=== PATIENT | female | born 1995 | race Caucasian/White ===

== ENCOUNTER 2017-04-02 10:11 | Emergency (ER) | payer OTHER | END 2017-04-02 12:20 | disposition home or self-care (01) | LOC: M ED 10:11 | DX: G56.03 Carpal tunnel syndrome, bilateral upper limbs (principal); F17.210 Nicotine dependence, cigarettes, uncomplicated | CPT/HCPCS: 99282 ==

== ENCOUNTER 2018-01-25 16:05 | Emergency (ER) | payer MEDICAID, SELFPAY, OTHER ==
[2018-01-25] MEDS: PERCOCET 5MG/325MG TAB PO ×2 (17:04)
== END 2018-01-25 18:11 | disposition home or self-care (01) ==
LOC: M ED 16:05
DX: M79.671 Pain in right foot (principal)
CPT/HCPCS: 73630

== ENCOUNTER → 2018-05-31 | Outpatient (REF) | payer OTHER ==
[~2018-05-31] MED LIST: COLA100C5 PO; IBUP-1114 PO; IBUP80TA PO; INDO50CA PO; MAPA500T2 PO; MOM30SS PO; PERC5TAB12 PO; PRENTAB9 PO
[2018-05-31 17:43] LABS: INFLUENZA A AMPLIFICATION POSITIVE (NEGATIVE); INFLUENZA B AMPLIFICATION NEGATIVE (NEGATIVE)
== END ==
LOC: M LAB REF 11:46
PROVIDERS: ATTEND Nurse Practitioner Family
DX: J11.1 Influenza due to unidentified influenza virus with other respiratory manifestations (principal)

== ENCOUNTER 2018-07-30 19:07 | Emergency (ER) | payer MEDICAID, OTHER ==
[~2018-07-30] VITALS: Ht 152.4 cm; Wt 118.9 kg
[2018-07-30 19:07] VITALS: BP 128/69
[~2018-07-30 19:07] MED LIST changes: -INDO50CA PO; +INDO50CA11 PO
--- NOTE | 2018-07-30 20:03 | REP ---
Left ankle four views History: Fall There is no acute fracture or dislocation. The joint space is normal in appearance. Soft tissue swelling is present. Impression: There is no acute fracture or dislocation. Electronically Signed by Jonah Sierra MD 07/30/2018 07:55 P
== END 2018-07-30 19:50 | disposition home or self-care (01) ==
LOC: M ED 19:07
DX: S93.402A Sprain of unspecified ligament of left ankle, initial encounter (principal); W19.XXXA Unspecified fall, initial encounter; Y92.099 Unspecified place in other non-institutional residence as the place of occurrence of the external cause; Y93.9 Activity, unspecified; Y99.9 Unspecified external cause status; Z72.0 Tobacco use

== ENCOUNTER 2018-10-23 19:24 | Emergency (ER) | payer OTHER ==
[~2018-10-23] VITALS: Ht 154.9 cm; Wt 119.5 kg
[2018-10-23] MEDS ORDERED: IBUP80TA PO (22:32)
[2018-10-23] MEDS ORDERED: KETOROLAC 60 MG/2 ML VIAL (J1885) IM ONE (22:45)
[2018-10-23] MEDS ORDERED: ACETAMINOPHEN 500 MG TAB PO ONE (22:45)
[2018-10-23 22:51] VITALS: BP 130/80
--- NOTE | 2018-10-24 08:01 | REP ---
The left ankle four views : There is soft tissue edema laterally There is no fracture or dislocation. Mineralization and joint spaces are normal. There are no calcifications or foreign bodies. Impression: Negative soft tissue edema laterally, no fracture. Electronically Signed by Sadiq Sullivan MD 10/24/2018 07:52 A
== END 2018-10-23 22:56 | disposition home or self-care (01) ==
LOC: M ED 19:24
DX: S93.402A Sprain of unspecified ligament of left ankle, initial encounter (principal); X50.9XXA Other and unspecified overexertion or strenuous movements or postures, initial encounter; Y92.018 Other place in single-family (private) house as the place of occurrence of the external cause; F33.9 Major depressive disorder, recurrent, unspecified; F41.9 Anxiety disorder, unspecified; F17.210 Nicotine dependence, cigarettes, uncomplicated
CPT/HCPCS: 73610; 96372; 99284; J1885

== ENCOUNTER → 2021-09-29 | Outpatient (CLI) | payer OTHER ==
[~2021-09-29] MED LIST changes: -INDO50CA11 PO; +INDO50CA91 PO
[2021-09-29 13:57] LABS: BASO % 0.3 % (0.0-1.0); EOS # 0.1 10^3/uL (0.0-0.5); EOS % 0.8 % (0.0-3.0); HEMATOCRIT 39.7 % (36.0-47.0); HEMOGLOBIN 13.6 g/dl (12.0-15.5); LYMPH # 1.7 10^3/uL (1.5-5.0); MEAN CORPUSCULAR HEMOGLOBIN 32.5 pg (27.0-33.0); MEAN CORPUSCULAR HGB CONC 34.3 g/dl (32.0-36.5); MONO # 0.4 10^3/uL (0.0-0.8); MONO % 5.2 % (2.0-8.0); NEUTROPHILS # 5.5 10^3/uL (1.5-8.5); NEUTROPHILS % 71.3 % (36.0-66.0); PLATELET COUNT, AUTOMATED 297 10^3/uL (150-450); RED BLOOD COUNT 4.18 10^6/uL (4.00-5.40); WHITE BLOOD COUNT 7.7 10^3/uL (4.0-10.0)
[2021-09-29 15:21] LABS: GC DNA AMPLIFICATION NEGATIVE (NEGATIVE)
[2021-09-29 15:27] LABS: HEPATITIS C VIRUS ABY INDEX 0.2 INDEX (<0.8); HIV 1&2 SCREEN CENTAUR NEGATIVE (NEGATIVE)
== END ==
LOC: M PLALAB 08:48
PROVIDERS: ATTEND Advanced Practice Midwife
DX: Z34.81 Encounter for supervision of other normal pregnancy, first trimester (principal); Z36.89 Encounter for other specified antenatal screening

== ENCOUNTER → 2021-10-25 | Outpatient (CLI) | payer OTHER | LOC: M WHC 14:12 | PROVIDERS: ATTEND Advanced Practice Midwife | DX: Z34.82 Encounter for supervision of other normal pregnancy, second trimester (principal); Z36.9 Encounter for antenatal screening, unspecified ==

== ENCOUNTER → 2021-11-24 | Outpatient (CLI) | payer OTHER | LOC: M WHC 13:29 | PROVIDERS: ATTEND Advanced Practice Midwife | DX: Z34.82 Encounter for supervision of other normal pregnancy, second trimester (principal); Z3A.19 19 weeks gestation of pregnancy ==

== ENCOUNTER → 2022-01-23 | Outpatient (CLI) | payer OTHER | LOC: M WHC 12:58 | PROVIDERS: ATTEND Advanced Practice Midwife | DX: Z34.02 Encounter for supervision of normal first pregnancy, second trimester (principal); Z3A.28 28 weeks gestation of pregnancy ==

== ENCOUNTER → 2022-01-29 | Outpatient (CLI) | payer OTHER ==
[2022-01-29 13:59] LABS: HEMATOCRIT 33.7 % (36.0-47.0); HEMOGLOBIN 11.3 g/dl (12.0-15.5); MEAN CORPUSCULAR HEMOGLOBIN 32.6 pg (27.0-33.0); MEAN CORPUSCULAR HGB CONC 33.5 g/dl (32.0-36.5); MEAN CORPUSCULAR VOLUME 97.1 fl (80.0-96.0); PLATELET COUNT, AUTOMATED 240 10^3/uL (150-450); RED BLOOD COUNT 3.47 10^6/uL (4.00-5.40); WHITE BLOOD COUNT 7.9 10^3/uL (4.0-10.0)
[2022-01-29 15:50] LABS: GC DNA AMPLIFICATION NEGATIVE (NEGATIVE)
== END ==
LOC: M PLALAB 09:54
PROVIDERS: ATTEND Obstetrics & Gynecology
DX: Z34.82 Encounter for supervision of other normal pregnancy, second trimester (principal)

== ENCOUNTER 2022-03-08 09:02 | Outpatient (CLI) | payer OTHER ==
[~2022-03-08] VITALS: Ht 154.9 cm; Wt 114.8 kg
[2022-03-08] MEDS ORDERED: HOME MED LIST COMPLETE! XX SCH (09:15)
[2022-03-08] MEDS ORDERED: ACET325C5 PO (09:15)
[2022-03-08 09:24] VITALS: BP 120/58
[2022-03-08 09:36] VITALS: BP 127/59
[2022-03-08 10:48] LABS: RSV AMPLIFICATION NEGATIVE (NEGATIVE)
[2022-03-08 11:46] LABS: APPEARANCE, URINE MANUAL HAZY (CLEAR); COLOR, URINE MANUAL AMBER (YELLOW)
[2022-03-08 11:47] LABS: BILIRUBIN, URINE MANUAL 2+ (NEGATIVE); GLUCOSE, URINE (UA) MANUAL NEGATIVE (NEGATIVE); KETONE, URINE MANUAL 3+ mg/dL (NEGATIVE); PROTEIN, URINE MANUAL 1+ mg/dL (NEGATIVE); UROBILINOGEN, URINE MANUAL 4 MG mg/dl (NORMAL)
[2022-03-08 11:48] LABS: BLOOD URINE MANUAL TRACE (NEGATIVE); LEUKOCYTE ESTERASE, URINE MAN TRACE (NEGATIVE); NITRITE, URINE MANUAL NEGATIVE (NEGATIVE)
[2022-03-08 12:10] VITALS: BP 98/48
[2022-03-08 12:14] VITALS: BP 118/53
[2022-03-08 12:16] LABS: BACTERIA, URINE SMALL AMOUNT; HYALINE CAST, URINE NONE SEEN /lpf (0-1); MUCUS, URINE MOD AMOUNT (NEGATIVE); RBC, URINE 0-1 /hpf (0-3); SQUAMOUS EPITHELIAL CELL URINE MOD AMOUNT /hpf (SMALL AMT)
[2022-03-08] MEDS ORDERED: OSELTAMIVIR PHOSPHATE 75 MG CAP (TAMIFLU) PO SCH (13:00)
[2022-03-08] MEDS ORDERED: OSEL75CA2 PO (14:25)
== END 2022-03-08 14:30 | disposition home or self-care (01) ==
LOC: M LDO 09:02
PROVIDERS: ATTEND Obstetrics & Gynecology
DX: O99.513 Diseases of the respiratory system complicating pregnancy, third trimester (principal); J10.01 Influenza due to other identified influenza virus with the same other identified influenza virus pneumonia; Z3A.34 34 weeks gestation of pregnancy

== ENCOUNTER 2022-03-10 14:07 | Outpatient (CLI) | payer OTHER ==
[~2022-03-10] VITALS: Ht 154.9 cm; Wt 114.7 kg
[~2022-03-10 14:07] MED LIST changes: +ACET325C5 PO; +OSEL75CA2 PO
[2022-03-10 14:28] VITALS: BP 104/58
[2022-03-10] MEDS ORDERED: HOME MED LIST COMPLETE! XX SCH (14:30)
== END 2022-03-10 15:20 | disposition home or self-care (01) ==
LOC: M LDO 14:07
PROVIDERS: ATTEND Obstetrics & Gynecology
DX: O26.853 Spotting complicating pregnancy, third trimester (principal); Z3A.34 34 weeks gestation of pregnancy

== ENCOUNTER → 2022-03-20 | Outpatient (REF) | payer OTHER | LOC: M SFHCWAGY 13:27 | PROVIDERS: ATTEND Advanced Practice Midwife | DX: Z34.80 Encounter for supervision of other normal pregnancy, unspecified trimester (principal) ==

== ENCOUNTER → 2022-03-21 | Outpatient (CLI) | payer OTHER | LOC: M WHC 10:30 | PROVIDERS: ATTEND Advanced Practice Midwife | DX: O26.843 Uterine size-date discrepancy, third trimester (principal); Z3A.36 36 weeks gestation of pregnancy ==

== ENCOUNTER 2022-03-27 08:27 | Outpatient (CLI) | payer OTHER ==
[~2022-03-27] VITALS: Ht 154.9 cm; Wt 116.7 kg
[2022-03-27 08:42] VITALS: BP 111/56
[2022-03-27] MEDS ORDERED: HOME MED LIST COMPLETE! XX SCH (08:50)
[2022-03-27 09:54] VITALS: BP 132/70
[2022-03-27 11:33] VITALS: BP 122/70
[2022-03-27 13:30] VITALS: BP 123/58
[2022-03-27] MEDS ORDERED: METR-265 PO (15:18)
== END 2022-03-27 13:45 | disposition home or self-care (01) ==
LOC: M LDO 08:27
PROVIDERS: ATTEND Obstetrics & Gynecology
DX: O47.03 False labor before 37 completed weeks of gestation, third trimester (principal); O26.893 Other specified pregnancy related conditions, third trimester; R10.2 Pelvic and perineal pain; Z3A.36 36 weeks gestation of pregnancy

== ENCOUNTER 2022-04-11 07:58 | Inpatient (IN) | payer OTHER ==
[2022-04-11] VITALS (24 sets, daily range): BP systolic 100–140; BP diastolic 44–91
[~2022-04-11] VITALS: Ht 154.9 cm; Wt 118.4 kg
[~2022-04-11 07:58] MED LIST changes: +METR-265 PO
[2022-04-11] MEDS ORDERED: ACET-683 PO (08:23)
[2022-04-11] MEDS ORDERED: HOME MED LIST COMPLETE! XX SCH (08:25)
[2022-04-11] MEDS ORDERED: miSOPROStol 50MCG 1/2 TABLET PO ONE (09:05)
[2022-04-11] MEDS ORDERED: CARBOPROST TROMETHAMINE 250 MCG/ML AMP IM PRN (09:05)
[2022-04-11] MEDS ORDERED: OXYTOCIN INJ 10UNITS/ML 1ML VIAL IM PRN (09:05)
[2022-04-11] MEDS ORDERED: LIDOCAINE 1% MDV 20ML VIAL INFIL PRN (09:05)
[2022-04-11] MEDS ORDERED: METHYLERGONOVINE MALEATE 0.2 MG/ML VIAL (J2210) IM PRN (09:05)
[2022-04-11] MEDS ORDERED: TRANEXAMIC ACID INJection 1,000 MG in NS 100 ML IV PRN (09:05)
[2022-04-11] MEDS ORDERED: OXYTOCIN DRIP 30 UNITS in IV 1 EA IV PRN ×4 (09:05)
[2022-04-11 09:56] LABS: HEMATOCRIT 35.4 % (36.0-47.0); MEAN CORPUSCULAR HEMOGLOBIN 31.7 pg (27.0-33.0); MEAN CORPUSCULAR HGB CONC 33.9 g/dl (32.0-36.5); MEAN CORPUSCULAR VOLUME 93.4 fl (80.0-96.0); PLATELET COUNT, AUTOMATED 281 10^3/uL (150-450); RED BLOOD COUNT 3.79 10^6/uL (4.00-5.40); WHITE BLOOD COUNT 9.8 10^3/uL (4.0-10.0)
[2022-04-11 10:29] LABS: URIC ACID 6.1 MG/DL (3.1-7.8)
[2022-04-11 10:31] LABS: LDH LACTATE DEHYDROGENASE 154 U/L (120-246)
[2022-04-11 10:32] LABS: ALT/SGPT < 9 U/L (7.0-40); AST/SGOT 15 U/L (<34); BILIRUBIN,TOTAL 0.3 MG/DL (0.3-1.2); CREATININE FOR GFR 0.52 MG/DL (0.55-1.30); GLOMERULAR FILTRATION RATE > 60.0 (>60)
[2022-04-11] MEDS ORDERED: OXYTOCIN DRIP 30 UNITS in IV 1 EA IV SCH (15:15)
[2022-04-11] MEDS: LR 1,000 ML IV SCH ×2 (15:30→17:14)
[2022-04-11] MEDS ORDERED: LR 500 ML IV PRN (16:30)
[2022-04-11] MEDS ORDERED: ePHEDrine SULFATE 25 MG/5 ML(5MG/ML) SYRINGE IVP PRN (16:30)
[2022-04-11] MEDS ORDERED: FENTANYL/ROPIVACAINE/NACL BAG 100 ML EPIDURAL SCH (16:30)
[2022-04-11] MEDS ORDERED: NALOXONE INJ 0.4MG/1ML VIAL IV PRN (16:30)
[2022-04-11] MEDS ORDERED: ONDANSETRON 4MG 2ML VIAL IV PRN (16:30)
[2022-04-11] MEDS ORDERED: EPIDURAL/PCA KEYS XX PRN (16:30)
[2022-04-11] MEDS ORDERED: diphenhydrAMINE 50MG/ML VIAL IV PRN (16:30)
[2022-04-11 23:51] LABS: CORD GAS ABE A -6.2; CORD GAS HCO3 A 23.1 MEQ/L; CORD GAS O2 SAT A 29.4 %; CORD GAS PCO2 A 59.8 mmHg; CORD GAS PH A 7.204 UNITS; CORD GAS SBC A 17.7 MEQ/L; CORD GAS TCO2 A 24.9 MEQ/L
[2022-04-12] LABS: CORD GAS ABE V -3.8; CORD GAS HCO3 V 20.6 MEQ/L; CORD GAS O2 SAT V 73.6 %; CORD GAS PCO2 V 36.1 mmHg; CORD GAS PH V 7.374 UNITS; CORD GAS PO2 V 31.2 mmHg; CORD GAS SBC V 20.7 MEQ/L; CORD GAS TCO2 V 21.7 MEQ/L
[2022-04-12] MEDS ORDERED: ACETAMINOPHEN TAB 650MG DOSE (2X325MG) PO PRN (00:05)
[2022-04-12] MEDS ORDERED: IBUPROFEN 600MG TAB PO PRN (00:05)
[2022-04-12] MEDS ORDERED: ACETAMINOPHEN 500 MG TAB PO PRN (00:05)
[2022-04-12] MEDS ORDERED: METHYLERGONOVINE MALEATE 0.2 MG TAB PO PRN (00:05)
[2022-04-12] MEDS ORDERED: RHOGAM 300MCG (1500IU) INJ IM SCH (00:05)
[2022-04-12] MEDS ORDERED: DOCUSATE SODIUM 100MG CAPSULE PO PRN (00:05)
[2022-04-12] MEDS ORDERED: DIBUCAINE 1% OINTMENT 30GM TOP PRN (00:05)
[2022-04-12 01:27] VITALS: BP 109/67
[2022-04-12 05:55] VITALS: BP_SYST 107; BP_SYST 122; BP_DIAS 58; BP_DIAS 66
[2022-04-12] MEDS: PRENATAL VITAMINS CHEWABLE TABLET PO SCH (08:49)
[2022-04-12] MEDS: IBUPROFEN 800 MG TAB PO PRN (08:50)
[2022-04-12 18:00] VITALS: BP 127/64
[2022-04-13] MEDS: IBUPROFEN 800 MG TAB PO PRN ×2 (00:33→01:05)
[2022-04-13 06:00] VITALS: BP 115/57
[2022-04-13] MEDS: PRENATAL VITAMINS CHEWABLE TABLET PO SCH (08:13)
[2022-04-14] MEDS ORDERED: MEASLES,MUMPS,RUBELLA VACCINE INJ (MMR-II) SC.IMMUN ONE (09:00)
== END 2022-04-13 17:35 | disposition home or self-care (01) | DRG 560 ==
LOC: M LDI 07:58 → M OBS 04-12 01:07
PROVIDERS: ADMIT Advanced Practice Midwife; ATTEND Advanced Practice Midwife
PROC: 3E033VJ Introduction of Other Hormone into Peripheral Vein, Percutaneous Approach (ICD-10-PCS; 2022-04-11)
PROC: 3E0DXGC Introduction of Other Therapeutic Substance into Mouth and Pharynx, External Approach (ICD-10-PCS; 2022-04-11)
PROC: 10E0XZZ Delivery of Products of Conception, External Approach (ICD-10-PCS; principal; 2022-04-12)
DX: O66.0 Obstructed labor due to shoulder dystocia (principal); Z37.0 Single live birth; Z3A.39 39 weeks gestation of pregnancy

== ENCOUNTER → 2023-06-20 | Outpatient (CLI) | payer OTHER ==
[~2023-06-20] MED LIST changes: +ACET-683 PO
[2023-06-20 14:29] LABS: HEMATOCRIT 39.5 % (36.0-47.0); HEMOGLOBIN 13.3 g/dl (12.0-15.5); MEAN CORPUSCULAR HEMOGLOBIN 32.5 pg (27.0-33.0); MEAN CORPUSCULAR HGB CONC 33.7 g/dl (32.0-36.5); MEAN CORPUSCULAR VOLUME 96.6 fl (80.0-96.0); PLATELET COUNT, AUTOMATED 307 10^3/uL (150-450); RED BLOOD COUNT 4.09 10^6/uL (4.00-5.40); WHITE BLOOD COUNT 10.8 10^3/uL (4.0-10.0)
[2023-06-20 15:20] LABS: HIV 1&2 SCREEN NEGATIVE (NEGATIVE)
[2023-06-20 15:29] LABS: HEPATITIS C VIRUS ABY INDEX 0.11 INDEX (<0.8)
[2023-06-20 15:57] LABS: GC DNA AMPLIFICATION NEGATIVE (NEGATIVE)
== END ==
LOC: M PLALAB 09:19
PROVIDERS: ATTEND Advanced Practice Midwife
DX: Z34.91 Encounter for supervision of normal pregnancy, unspecified, first trimester (principal)

== ENCOUNTER → 2023-07-18 | Outpatient (REF) | payer OTHER | LOC: M PLALAB 09:26 | PROVIDERS: ATTEND Obstetrics & Gynecology | DX: R82.90 Unspecified abnormal findings in urine (principal) ==

== ENCOUNTER → 2023-09-06 | Outpatient (CLI) | payer OTHER | LOC: M WHC 07:45 | PROVIDERS: ATTEND Obstetrics & Gynecology | DX: O32.1XX0 Maternal care for breech presentation, not applicable or unspecified (principal); Z3A.24 24 weeks gestation of pregnancy; O41.8X20 Other specified disorders of amniotic fluid and membranes, second trimester, not applicable or unspecified ==

== ENCOUNTER → 2023-10-02 | Outpatient (CLI) | payer OTHER ==
[2023-10-02 17:26] LABS: HEMATOCRIT 34.9 % (36.0-47.0); HEMOGLOBIN 11.5 g/dl (12.0-15.5); MEAN CORPUSCULAR HEMOGLOBIN 33.2 pg (27.0-33.0); MEAN CORPUSCULAR VOLUME 100.9 fl (80.0-96.0); PLATELET COUNT, AUTOMATED 227 10^3/uL (150-450); RED BLOOD COUNT 3.46 10^6/uL (4.00-5.40); WHITE BLOOD COUNT 10.7 10^3/uL (4.0-10.0)
[2023-10-02 18:01] LABS: GLUCOSE CHALLENGE TEST 1 HOUR 96 MG/DL (LESS THAN 140)
== END ==
LOC: M PLALAB 13:22
PROVIDERS: ATTEND Advanced Practice Midwife
DX: Z34.92 Encounter for supervision of normal pregnancy, unspecified, second trimester (principal)

== ENCOUNTER → 2023-10-14 | Outpatient (CLI) | payer OTHER | LOC: M WHC 11:45 | PROVIDERS: ATTEND Advanced Practice Midwife | DX: Z34.92 Encounter for supervision of normal pregnancy, unspecified, second trimester (principal) ==

== ENCOUNTER → 2023-11-19 | Outpatient (REF) | payer OTHER ==
[2023-11-19 17:10] LABS: GC DNA AMPLIFICATION NEGATIVE (NEGATIVE)
== END ==
LOC: M SFHCWAGY 15:13
PROVIDERS: ATTEND Nurse Practitioner Women's Health
DX: Z34.83 Encounter for supervision of other normal pregnancy, third trimester (principal); Z3A.34 34 weeks gestation of pregnancy

== ENCOUNTER → 2023-11-25 | Outpatient (CLI) | payer OTHER | LOC: M RAD 15:29 | PROVIDERS: ATTEND Obstetrics & Gynecology | DX: Z36.2 Encounter for other antenatal screening follow-up (principal); Z3A.35 35 weeks gestation of pregnancy ==

== ENCOUNTER → 2023-12-10 | Outpatient (REF) | payer OTHER ==
[~2023-12-10] MED LIST changes: +IBUP-1022 PO
== END ==
LOC: M SFHCWAGY 12:43
PROVIDERS: ATTEND Nurse Practitioner Women's Health
DX: Z34.83 Encounter for supervision of other normal pregnancy, third trimester (principal); Z36.85 Encounter for antenatal screening for Streptococcus B

== ENCOUNTER 2025-04-06 13:34 | Emergency (ER) | payer OTHER, MEDICAID ==
[~2025-04-06] VITALS: Ht 154.9 cm; Wt 124.6 kg
[~2025-04-06 13:34] MED LIST changes: -IBUP-1022 PO; +IBUP600T42 PO
[2025-04-06 15:25] VITALS: BP 129/89; TEMP 98.7; O2SAT 99
== END 2025-04-06 15:27 | disposition home or self-care (01) ==
LOC: M ED 13:34
DX: S43.402A Unspecified sprain of left shoulder joint, initial encounter (principal); W19.XXXA Unspecified fall, initial encounter; Y92.009 Unspecified place in unspecified non-institutional (private) residence as the place of occurrence of the external cause; Y93.9 Activity, unspecified; Y99.9 Unspecified external cause status